=== PATIENT | female | born 1985 | race Caucasian/White ===

== ENCOUNTER 2020-03-31 11:04 | Emergency (ER) | payer BC ==
[2020-03-31] MEDS ORDERED: HYDROmorphone 1 MG/ML Syringe IVPUSH STA (11:45)
[2020-03-31] MEDS ORDERED: Sodium Chloride 0.9% 1,000 ML IV SCH (11:45)
[2020-03-31] MEDS ORDERED: Ondansetron 4 MG/2 ML SDV IVPUSH ONE (11:45)
[2020-03-31] MEDS ORDERED: Sodium Chloride 0.9% 10 ML Syringe FLUSH PRN (11:46)
--- NOTE | 2020-03-31 11:54 | EDM.PDOC ---
ED HPI GENERAL MEDICAL PROBLEM - General Chief Complaint: Abdominal Pain Stated Complaint: ABDOMINAL/BACK PAIN Time Seen by Provider: 03/31/20 11:37 Source of Information: Reports: Patient, RN Notes Reviewed History Limitations: Reports: No Limitations - History of Present Illness INITIAL COMMENTS - FREE TEXT/NARRATIVE: Patient is a 34-year-old female who presents to the ED for the evaluation of her right upper quadrant abdominal pain and back pain. Patient states that she had her gallbladder taken out in [place] on February 24. She has been having pain in her right upper quadrant since then, but it has worsened over the last 2 or 3 days. She states that the pain is around an 8 out of 10 since Wednesday. She notes that the pain is is a constant stabbing, and is worse under her ribs shoots into her back, and states that it also shoots down into her right pelvis. States she has not really had much of an appetite so she has not been eating much for the past few days, she has been drinking quite a bit of water, she states she is peeing quite a bit. She denies any chance of at today's visit. She has had no fevers, but her temperature at the time of triage is 99.4 degrees. O2 sats in the 96%, blood pressure is 113/76, respiratory rate of 20 and her pulse rate of 80 bpm. Patient states she feels mildly dizzy from sitting to standing as well. Right Upper Abdomen Pain Score (Numeric/FACES): 8 - Related Data Allergies Allergy/AdvReac Type Severity Reaction Status Date / Time moxifloxacin Allergy Severe Diarrhea Verified 03/31/20 11:23 Home Meds: Home Meds Levothyroxine [Synthroid] 88 mcg PO DAILY 03/31/20 [History] QUEtiapine Fumarate [Seroquel] 50 mg PO BEDTIME 03/31/20 [History] Past Medical History Respiratory History: Reports: Other (See Below) Other Respiratory History: bronchial cyst removed Musculoskeletal History: Reports: Other (See Below) Other Musculoskeletal History: L5 S1 back surgery - Past Surgical History HEENT Surgical History: Reports: Adenoidectomy, Tonsillectomy Social & Family History - Tobacco Use Tobacco Use Status *Q: Never Tobacco User - Caffeine Use Caffeine Use: Reports: Coffee, Tea - Recreational Drug Use Recreational Drug Use: No ED ROS GENERAL - Review of Systems Review Of Systems: Comprehensive ROS is negative, except as noted in HPI. ED EXAM, GI/ABD - Physical Exam Exam: See Below Exam Limited By: No Limitations General Appearance: Alert, WD/WN, No Apparent Distress Respiratory/Chest: No Respiratory Distress, Lungs Clear, Normal Breath Sounds, No Accessory Muscle Use, Chest Non-Tender Cardiovascular: Normal Peripheral Pulses, Regular Rate, Rhythm, No Edema GI/Abdominal Exam: Soft, No Distention, No Mass, Tender (RUQ mainly but ra diation down to the patients RLQ/flank area), Abnormal Bowel Sounds (hypoactive) Neurological: Alert, Oriented, Normal Cognition, No Motor/Sensory Deficits Psychiatric: Normal Affect, Normal Mood Skin Exam: Warm, Dry, Intact, Normal Color, No Rash Course - Vital Signs Last Recorded V/S: Last Vital Signs Temp 99.4 F 03/31/20 11:28 Pulse 80 03/31/20 11:28 Resp 20 03/31/20 11:28 BP 113/76 03/31/20 11:28 Pulse Ox 96 03/31/20 11:28 - Orders/Labs/Meds Orders: Active Orders 24 hr Category Date Time Status Enema [RC] ASDIRECTED Care 03/31/20 13:18 Ordered Peripheral IV Care [RC] . DIRECTED Care 03/31/20 11:46 Ordered Abdomen Pelvis w Cont [CT] Stat Exams 03/31/20 11:45 Ordered Sodium Chloride 0.9% [Normal Saline] 1,000 ml Med 03/31/20 11:45 Ordered IV ASDIRECTED Sodium Chloride 0.9% [Saline Flush] Med 03/31/20 11:46 Ordered 10 ml FLUSH ASDIRECTED PRN Peripheral IV Insertion Adult [OM.PC] Routine Oth 03/31/20 11:46 Ordered Medication Orders Sodium Chloride (Normal Saline) 1,000 mls @ 999 mls/hr IV ASDIRECTED WILIAM Last Admin: 03/31/20 11:58 Dose: 999 mls/hr Documented by: SYDNEY Sodium Chloride (Saline Flush) 10 ml FLUSH ASDIRECTED PRN PRN Reason: Keep Vein Open Last Admin: 03/31/20 12:00 Dose: 10 ml Documented by: SYDNEY Labs: Laboratory Tests 03/31/20 03/31/20 03/31/20 Range/Units 11:35 11:35 12:00 WBC 9.07 (3.98-10.04) K/mm3 RBC 4.40 (3.98-5.22) M/mm3 Hgb 12.9 (11.2-15.7) gm/dl Hct 40.2 (34.1-44.9) % MCV 91.4 (79.4-94.8) fl MCH 29.3 (25.6-32.2) pg MCHC 32.1 L (32.2-35.5) g/dl RDW Std Deviation 44.0 (36.4-46.3) fL Plt Count 216 (182-369) K/mm3 MPV 11.5 (9.4-12.3) fl Neutrophils % (Manual) 70 H (40-60) % Band Neutrophils % 0 (0-10) % Lymphocytes % (Manual) 29 (20-40) % Atypical Lymphs % 0 % Monocytes % (Manual) 1 L (2-10) % Eosinophils % (Manual) 0 L (0.7-5.8) % Basophils % (Manual) 0 L (0.1-1.2) Platelet Estimate Adequate RBC Morph Comment Normal Sodium 142 (136-145) mEq/L Potassium 4.0 (3.5-5.1) mEq/L Chloride 106 (98-107) mEq/L Carbon Dioxide 26 (21-32) mEq/L Anion Gap 14.0 (5-15) BUN 11 (7-18) mg/dL Creatinine 0.7 (0.55-1.02) mg/dL Est Cr Clr Drug Dosing 88.72 mL/min Estimated GFR (MDRD) > 60 (>60) mL/min BUN/Creatinine Ratio 15.7 (14-18) Glucose 108 H (74-106) mg/dL Calcium 8.8 (8.5-10.1) mg/dL Total Bilirubin 0.3 (0.2-1.0) mg/dL GGT 19 (5-55) U/L AST 12 L (15-37) U/L ALT 15 (14-59) U/L Alkaline Phosphatase 50 (46-116) U/L C-Reactive Protein < 0.2 (<1.0) mg/dL Total Protein 6.7 (6.4-8.2) g/dl Albumin 3.5 (3.4-5.0) g/dl Globulin 3.2 gm/dL Albumin/Globulin Ratio 1.1 (1-2) Lipase 148 (73-393) U/L Urine Color (Yellow) Urine Appearance (Clear) Urine pH (5.0-8.0) Ur Specific Thornton (1.005-1.030) Urine Protein (Negative) Urine Glucose (UA) (Negative) Urine Ketones (Negative) Urine Occult Blood (Negative) Urine Nitrite (Negative) Urine Bilirubin (Negative) Urine Urobilinogen (0.2-1.0) Ur Leukocyte Esterase (Negative) Urine RBC (0-5) /hpf Urine WBC (0-5) /hpf Ur Squamous Epith Cells (0-5) /hpf Urine Bacteria (FEW) /hpf Urine Mucus (FEW) /hpf Urine HCG, Qual Negative (NEGATIVE) 03/31/20 Range/Units 12:02 WBC (3.98-10.04) K/mm3 RBC (3.98-5.22) M/mm3 Hgb (11.2-15.7) gm/dl Hct (34.1-44.9) % MCV (79.4-94.8) fl MCH (25.6-32.2) pg MCHC (32.2-35.5) g/dl RDW Std Deviation (36.4-46.3) fL Plt Count (182-369) K/mm3 MPV (9.4-12.3) fl Neutrophils % (Manual) (40-60) % Band Neutrophils % (0-10) % Lymphocytes % (Manual) (20-40) % Atypical Lymphs % % Monocytes % (Manual) (2-10) % Eosinophils % (Manual) (0.7-5.8) % Basophils % (Manual) (0.1-1.2) Platelet Estimate RBC Morph Comment Sodium (136-145) mEq/L Potassium (3.5-5.1) mEq/L Chloride (98-107) mEq/L Carbon Dioxide (21-32) mEq/L Anion Gap (5-15) BUN (7-18) mg/dL Creatinine (0.55-1.02) mg/dL Est Cr Clr Drug Dosing mL/min Estimated GFR (MDRD) (>60) mL/min BUN/Creatinine Ratio (14-18) Glucose (74-106) mg/dL Calcium (8.5-10.1) mg/dL Total Bilirubin (0.2-1.0) mg/dL GGT (5-55) U/L AST (15-37) U/L ALT (14-59) U/L Alkaline Phosphatase (46-116) U/L C-Reactive Protein (<1.0) mg/dL Total Protein (6.4-8.2) g/dl Albumin (3.4-5.0) g/dl Globulin gm/dL Albumin/Globulin Ratio (1-2) Lipase (73-393) U/L Urine Color Yellow (Yellow) Urine Appearance Clear (Clear) Urine pH 8.0 (5.0-8.0) Ur Specific Thornton 1.025 (1.005-1.030) Urine Protein Negative (Negative) Urine Glucose (UA) Negative (Negative) Urine Ketones Negative (Negative) Urine Occult Blood Trace-intact H (Negative) Urine Nitrite Negative (Negative) Urine Bilirubin Negative (Negative) Urine Urobilinogen 0.2 (0.2-1.0) Ur Leukocyte Esterase Negative (Negative) Urine RBC 0-5 (0-5) /hpf Urine WBC 0-5 (0-5) /hpf Ur Squamous Epith Cells 0-5 (0-5) /hpf Urine Bacteria Few (FEW) /hpf Urine Mucus Not seen (FEW) /hpf Urine HCG, Qual (NEGATIVE) Meds: Medications Generic Name Dose Route Start Last Admin Trade Name Freq PRN Reason Stop Dose Admin Sodium Chloride 1,000 mls @ 999 mls/hr 03/31/20 11:45 03/31/20 11:58 Normal Saline IV 999 mls/hr ASDIRECTED WILIAM Administration Sodium Chloride 10 ml 03/31/20 11:46 03/31/20 12:00 Saline Flush FLUSH 10 ml ASDIRECTED PRN Administration Keep Vein Open Discontinued Medications Generic Name Dose Route Start Last Admin Trade Name Freq PRN Reason Stop Dose Admin Hydromorphone HCl 1 mg 03/31/20 11:45 03/31/20 11:59 Dilaudid IVPUSH 03/31/20 11:46 1 mg ONETIME STA Administration Iopamidol 100 ml 03/31/20 12:34 03/31/20 12:49 Isovue-300 (61%) IVPUSH 03/31/20 12:35 100 ml ONETIME ONE Administration Iopamidol 25 ml 03/31/20 12:34 03/31/20 12:49 Isovue-300 (61%) IVPUSH 03/31/20 12:35 25 ml ONETIME ONE Administration Magnesium Citrate 296 ml 03/31/20 13:17 03/31/20 14:17 Citrate Of Magnesia PO 03/31/20 13:18 296 ml ONETIME ONE Administration Ondansetron HCl 4 mg 03/31/20 11:45 03/31/20 11:58 Zofran IVPUSH 03/31/20 11:46 4 mg ONETIME ONE Administration - Re-Assessments/Exams Free Text/Narrative Re-Assessment/Exam: 03/31/20 11:53 Patient presents to the ED for the evaluation of her right upper quadrant pain. I am concerned she might have a retained stone in her common bile duct versus possible abscess. Patient will get basic labs, IV pain meds IV nausea meds some IV fluids, and abdomen pelvis CT with IV contrast only for further evaluation. 03/31/20 13:18 Abs of been performed, and are all unremarkable. The patient CT has been performed and demonstrates surgical clips present within the right upper quadrant consistent with a previous cholecystectomy. There is no comment on the common bile duct, or stone retention. There is moderate retained mildly desiccated stool throughout all segments of the colon which is consistent with diffuse constipation. There is a nonobstructing 3 mm stone within the right lower pole of the lower right kidney. There is no sort of inflammation on the bowel to suggest other worrisome symptoms. With these results we will go ahead give the patient an enema, and mag citrate for management. Departure - Departure Time of Disposition: 14:41 Disposition: Home, Self-Care 01 Condition: Good Clinical Impression: Constipation Qualifiers: Constipation type: other constipation type Qualified Code(s): K59.09 - Other constipation - Discharge Information *PRESCRIPTION DRUG MONITORING PROGRAM REVIEWED*: No *COPY OF PRESCRIPTION DRUG MONITORING REPORT IN PATIENT ZACKERY: No Instructions: Constipation, Adult, [id number] Referrals: PCP,Not In Area [Primary Care Provider] - Forms: ED Department Discharge Additional Instructions: You were seen in the ER today for your abdominal pain. Your work-up was impressive for constipation at this time. You were given an enema, and some magnesium citrate to provide a bowel cleanse. Please note that you may have some abdomen cramping with the mag citrate, and you may end up having some looser stools towards the end of the bowel cleanse. The stool you had was quite hard, I recommend that you obtain a medication like MiraLAX, Dulcolax, or Colace to help soften the stools, to facilitate a good bowel regimen. Theoretically you want the stool to be pudding soft. So you do not have to strain in order for a bowel movement. You may take 600 mg ibuprofen every 6 hours for further abdominal discomfort. Please return to the ER at any time if symptoms change or worsen. Sepsis Event Note (ED) - Evaluation Sepsis Screening Result: No Definite Risk - Focused Exam Vital Signs: Vital Signs Temp Pulse Resp BP Pulse Ox 03/31/20 11:28 99.4 F 80 20 113/76 96 - My Orders Last 24 Hours: My Active Orders 03/31/20 11:45 Abdomen Pelvis w Cont [CT] Stat Sodium Chloride 0.9% [Normal Saline] 1,000 ml IV ASDIRECTED 03/31/20 11:46 Peripheral IV Care [RC] . DIRECTED Sodium Chloride 0.9% [Saline Flush] 10 ml FLUSH ASDIRECTED PRN Peripheral IV Insertion Adult [OM.PC] Routine 03/31/20 13:18 Enema [RC] ASDIRECTED - Assessment/Plan Last 24 Hours: My Active Orders 03/31/20 11:45 Abdomen Pelvis w Cont [CT] Stat Sodium Chloride 0.9% [Normal Saline] 1,000 ml IV ASDIRECTED 03/31/20 11:46 Peripheral IV Care [RC] . DIRECTED Sodium Chloride 0.9% [Saline Flush] 10 ml FLUSH ASDIRECTED PRN Peripheral IV Insertion Adult [OM.PC] Routine 03/31/20 13:18 Enema [RC] ASDIRECTED
[2020-03-31] MEDS ORDERED: Iopamidol 612 MG/ML 50 ML SDV IVPUSH ONE (12:34)
[2020-03-31] MEDS ORDERED: Iopamidol 612 MG/ML 100 ML Bottle IVPUSH ONE (12:34)
[2020-03-31] MEDS ORDERED: Magnesium Citrate Solution 296 ML Bottle PO ONE (13:17)
--- NOTE | 2020-04-01 08:15 | CT ---
CT abdomen and pelvis Technique: Multiple axial sections were obtained from slightly below the top of the liver inferiorly through the pubic symphysis. Delayed images were also obtained through the bladder. Reconstructed coronal and sagittal images were also obtained. Comparison: No prior CT imaging is available of the abdomen or pelvis. Findings: Visualized lung bases show nothing acute. Liver shows a small low-density lesion within the right lobe which is too small to accurately measure but is most likely due to a minimal cyst measuring about 2 mm. Liver is otherwise unremarkable. Spleen also appears normal in size. Adrenal glands show no nodule. Pancreas is within normal limits. Surgical clips are noted from prior cholecystectomy. Kidneys show symmetric contrast enhancement without hydronephrosis or mass. Small nonobstructing calculus is noted within the inferior right kidney measuring about 4 mm. Aorta shows no aneurysm. No retroperitoneal adenopathy is seen. Mild increased stool is noted throughout the colon. No pelvic mass or adenopathy is identified. Appendix is seen and appears to be normal in size. Delayed images show contrast within the bladder. Bone window settings were reviewed which show disc space narrowing at L5-S1. No acute osseous finding is appreciated. Impression: 1. Small 4 mm nonobstructing stone within the inferior right kidney. 2. Minimal low density finding within the right lobe of the liver which is too small to accurately measure but most likely is a cyst. 3. Increased stool is seen within the colon. Diagnostic code #3 I agree with preliminary report from [facility], finalized on 03/31/20, 2:13 PM PROGRAM DEVELOPMENT MANAGER
== END 2020-03-31 15:10 | disposition home or self-care (01) ==
LOC: JD.ED 11:04
DX: K59.09 Other constipation (principal); Z88.1 Allergy status to other antibiotic agents; Z79.899 Other long term (current) drug therapy
CPT/HCPCS: 36415; 74177; 80053; 81001; 81025; 82977; 83690; 85007; 85027; 86140; 96374; 96375; 99284; A9270; J1170; J2405; J7030; Q9967

== ENCOUNTER 2020-03-31 22:11 | Emergency (ER) | payer BC, OTHER ==
--- NOTE | 2020-03-31 23:05 | EDM.PDOC ---
ED HPI GENERAL MEDICAL PROBLEM - General Chief Complaint: Abdominal Pain Stated Complaint: ABDOMINAL PAIN Time Seen by Provider: 03/31/20 22:55 - History of Present Illness INITIAL COMMENTS - FREE TEXT/NARRATIVE: 34-year-old female presents the emergency room with abdominal pain. Patient was seen here earlier today diagnosed with pretty significant constipation. She had an abdominal CT and sterile labs done. Patient had a h uge bowel movement after receiving an enema here in the emergency department. She was discharged instructed to drink a bottle of mag citrate she did this shortly after leaving the department. She still having some discomfort more of a crampy sensation in her abdomen and she is noticing some rectal bleeding when she tries to go to the bathroom. This is bright red. She is not noticed any fevers or chills she does have some nausea. Abdomen Pain Score (Numeric/FACES): 10 - Related Data Allergies Allergy/AdvReac Type Severity Reaction Status Date / Time moxifloxacin Allergy Severe Diarrhea Verified 03/31/20 11:23 Home Meds: Home Meds Levothyroxine [Synthroid] 88 mcg PO DAILY 03/31/20 [History] QUEtiapine Fumarate [Seroquel] 50 mg PO BEDTIME 03/31/20 [History] Past Medical History Respiratory History: Reports: Other (See Below) Other Respiratory History: bronchial cyst removed Musculoskeletal History: Reports: Other (See Below) Other Musculoskeletal History: L5 S1 back surgery - Past Surgical History HEENT Surgical History: Reports: Adenoidectomy, Tonsillectomy Social & Family History - Tobacco Use Tobacco Use Status *Q: Never Tobacco User - Caffeine Use Caffeine Use: Reports: Tea - Recreational Drug Use Recreational Drug Use: No ED ROS GENERAL - Review of Systems Review Of Systems: See Below Constitutional: Reports: No Symptoms Respiratory: Reports: No Symptoms Cardiovascular: Reports: No Symptoms GI/Abdominal: Reports: Constipation, Nausea, Vomiting (Bright red blood from the rectum) : Reports: No Symptoms ED EXAM, GI/ABD - Physical Exam Exam: See Below Exam Limited By: No Limitations General Appearance: Alert, No Apparent Distress Respiratory/Chest: No Respiratory Distress, Lungs Clear, Normal Breath Sounds Cardiovascular: Normal Peripheral Pulses, Regular Rate, Rhythm, No Edema GI/Abdominal Exam: Normal Bowel Sounds, Soft, Tender (Normal discomfort with palpation). No: Guarding, Rigid, Rebound Back Exam: Normal Inspection. No: CVA Tenderness (L), CVA Tenderness (R) Neurological: Alert, Oriented, Normal Cognition Course - Vital Signs Last Recorded V/S: Last Vital Signs Temp 37.3 C 03/31/20 22:30 Pulse 90 03/31/20 22:30 Resp 20 03/31/20 22:30 BP 129/84 03/31/20 22:30 Pulse Ox 97 03/31/20 22:30 - Orders/Labs/Meds Orders: Active Orders 24 hr Category Date Time Status Abdomen 2V AP Flat Upright [CR] Stat Exams 03/31/20 23:10 Taken Meds: Medications Discontinued Medications Generic Name Dose Route Start Last Admin Trade Name Freq PRN Reason Stop Dose Admin Dicyclomine HCl 20 mg 03/31/20 23:07 03/31/20 23:19 Bentyl IM 03/31/20 23:08 20 mg ONETIME ONE Administration Lorazepam 0.5 mg 03/31/20 23:09 03/31/20 23:19 Ativan IM 03/31/20 23:10 0.5 mg ONETIME ONE Administration Ondansetron HCl 8 mg 03/31/20 23:54 04/01/20 00:01 Zofran Odt PO 03/31/20 23:55 8 mg ONETIME ONE Administration - Re-Assessments/Exams Free Text/Narrative Re-Assessment/Exam: 04/01/20 00:36 Patient was given IM Bentyl and this helped quite a bit however she has some residual nausea I checked KUB and upright she still has some stool in the descending colon and some of the rectum. After leaving the department several hours ago before returning she did drink a bottle of mag citrate has not noticed much of an effect from that. I did give her some Zofran for the nausea and this also helped at this point she thinks she can go home and get some rest. I have recommended she repeat the magnesium citrate in the morning. Departure - Departure Time of Disposition: 00:37 Disposition: Home, Self-Care 01 Clinical Impression: Abdominal pain Constipation Qualifiers: Constipation type: other constipation type Qualified Code(s): K59.09 - Other constipation - Discharge Information Referrals: PCP,Not In Area [Primary Care Provider] - Forms: ED Department Discharge Additional Instructions: Return to the emergency room with any questions problems or worsening symptoms. Repeat the magnesium citrate in the morning if needed. Follow-up with your regular healthcare provider this next week if needed. Consider starting yourself on MiraLAX daily adjust the dose as needed. At some point have your thyroid rechecked. This is best done when you do not have acute medical issues going on. Sepsis Event Note (ED) - Evaluation Sepsis Screening Result: No Definite Risk - Focused Exam Vital Signs: Vital Signs Temp Pulse Resp BP Pulse Ox 03/31/20 22:30 37.3 C 90 20 129/84 97 - My Orders Last 24 Hours: My Active Orders 03/31/20 23:10 Abdomen 2V AP Flat Upright [CR] Stat - Assessment/Plan Last 24 Hours: My Active Orders 03/31/20 23:10 Abdomen 2V AP Flat Upright [CR] Stat
[2020-03-31] MEDS ORDERED: Dicyclomine 20 MG/2 ML SDV IM ONE (23:07)
[2020-03-31] MEDS ORDERED: LORazepam 2 MG/ML SDV IM ONE (23:09)
[2020-03-31] MEDS ORDERED: Ondansetron 4 MG Tab.DIS PO ONE (23:54)
--- NOTE | 2020-04-01 10:01 | CR ---
Abdomen: Supine and upright views of the abdomen were obtained. Comparison: Prior CT abdomen and pelvis exam performed on the same date. Surgical clips are noted from prior cholecystectomy. Scattered air-fluid levels are noted which are believed to be within normal limits. CT study showed increased stool within the colon which is not appreciated on this exam. Small nonobstructing calculus is noted within the lower right kidney. Phleboliths are seen within the pelvis. No free air is seen. Impression: 1. Stool noted on prior CT study is not identified on current exam. 2. Other findings as noted above. Diagnostic code #2
== END 2020-04-01 00:50 | disposition home or self-care (01) ==
LOC: JD.ED 22:11
DX: K59.09 Other constipation (principal); Z79.899 Other long term (current) drug therapy; Z88.1 Allergy status to other antibiotic agents
CPT/HCPCS: 74019; 96372; 99284; A9270; J0500; J2060